=== PATIENT | male | born 1980 | race American Indian/Alaskan Native ===

== ENCOUNTER 2018-01-15 13:52 | Emergency (ER) | payer MEDICAID ==
[2018-01-15 13:52] VITALS: BMI 26.3
[2018-01-15 14:17] VITALS: BP 134/76; PULSE 58; RESP 17; TEMP 98; O2SAT 99
--- NOTE | 2018-01-15 14:54 | C.PDOC ---
History Of Present Illness 38yo male, comes to ER for evaluation of right foot pain, present since this morning. Patient states he is on his feet all night due to work and reports the pain may be due to this. He was previously seen for this complaint and was diagnosed with plantar fascitis. He denies any weakness, numbness or tingling and offers no additional medical complaints. Time Seen by Provider: 01/15/18 14:19 Chief Complaint (Nursing): Lower Extremity Problem/Injury History Per: Patient History/Exam Limitations: no limitations Onset/Duration Of Symptoms: Hrs Current Symptoms Are (Timing): Still Present Additional History Per: Patient Past Medical History Reviewed: Historical Data, Nursing Documentation, Vital Signs Vital Signs: Last Vital Signs Temp 98.0 F 01/15/18 14:14 Pulse 58 L 01/15/18 14:14 Resp 17 01/15/18 14:14 BP 134/76 01/15/18 14:14 Pulse Ox 99 01/15/18 14:55 - Medical History PMH: Denies: Diabetes, Hepatitis, HIV, HTN, Seizures, Sexually Transmitted Disease Surgical History: No Surg Hx Family History: States: No Known Family Hx, Unknown Family Hx - Social History Hx Alcohol Use: Yes Hx Substance Use: No - Immunization History Hx Tetanus Toxoid Vaccination: No Hx Influenza Vaccination: No Hx Pneumococcal Vaccination: No Review Of Systems Musculoskeletal: Positive for: Foot Pain Neurological: Negative for: Weakness, Numbness Physical Exam - Physical Exam Appears: Non-toxic Skin: Normal Color Extremity: Normal ROM (FROM of bilateral feet), Tenderness (tenderness to plantar ascpect of right foot) Pulses: Left Dorsalis Pedis: Normal, Right Dorsalis Pedis: Normal Neurological/Psych: Oriented x3, Normal Motor, Normal Sensation Gait: Steady ED Course And Treatment O2 Sat by Pulse Oximetry: 99 (RA) Pulse Ox Interpretation: Normal Progress Note: XR Right foot ordered. Patient given Toradol 30mg IM Medical Decision Making Medical Decision Making: h/o of plantar fasciitis, previously seen by podiatry. xr neg for fx. advised of incidental finding and request outpt fu. Disposition - Disposition Referrals: [facility] [Outside] [facility] [Outside] Podiatry Clinic [Outside] Disposition: HOME/ ROUTINE Disposition Time: 02:00 Condition: GOOD Additional Instructions: follow up with your doctor/clinic. return to er with worsening symptoms or concerns. Prescriptions: Naproxen 500 mg PO BID PRN #14 tablet PRN Reason: Pain, Mild (1-3) Instructions: Heel Pain (Caused by Plantar Fasciitis), Plantar Fasciitis Exercises, Foot Sprain (DC) Forms: [employer] ([place] Islander) - Clinical Impression Clinical Impression: Foot pain - Scribe Statement The provider has reviewed the documentation as recorded by the Nereida White Provider Attestation: All medical record entries made by the Nereida were at my direction and personally dictated by me. I have reviewed the chart and agree that the record accurately reflects my personal performance of the history, physical exam, medical decision making, and the department course for this patient. I have also personally directed, reviewed, and agree with the discharge instructions and disposition.
--- NOTE | 2018-01-15 14:59 | RAD ---
Date of service: 01/15/2018 PROCEDURE: Right Foot Radiographs. HISTORY: foot pain COMPARISON: None. FINDINGS: BONES: No acute fracture. JOINTS: Normal. SOFT TISSUES: Normal. OTHER FINDINGS: Inferior plantar calcaneal spur. IMPRESSION: No demonstrated fracture or dislocation. Large heel spur.
== END 2018-01-15 15:15 | disposition home or self-care (01) ==
LOC: C.ER 13:52
DX: M79.671 Pain in right foot (principal)
CPT/HCPCS: 73630; 96372; 99283; J1885

== ENCOUNTER 2018-05-21 13:03 | Emergency (ER) | payer MEDICAID ==
[2018-05-21 13:03] VITALS: BMI 26.3
[2018-05-21 13:15] VITALS: BP 130/75; PULSE 63; RESP 18; TEMP 98.8; O2SAT 98
[2018-05-21] MEDS ORDERED: guaiFENesin 100 mg/5 ml Syrup UD PO STA (13:25)
--- NOTE | 2018-05-21 13:27 | C.PDOC ---
History Of Present Illness 38 year old female presents to the ED for evaluation of cough, nasal congestion, and rhinorrhea for 1 week. Patient also reports right-sided headache. Admits he has not taken any mediation for current symptoms. Denies fever, nausea, vomiting, and any other associated symptoms. Time Seen by Provider: 05/21/18 13:21 Chief Complaint (Nursing): Cough, Cold, Congestion History Per: Patient History/Exam Limitations: no limitations Onset/Duration Of Symptoms: Days Current Symptoms Are (Timing): Still Present Past Medical History Reviewed: Historical Data, Nursing Documentation, Vital Signs Vital Signs: Last Vital Signs Temp 98.8 F 05/21/18 13:13 Pulse 63 05/21/18 13:13 Resp 18 05/21/18 13:13 BP 130/75 05/21/18 13:13 Pulse Ox 98 05/21/18 13:13 - Medical History PMH: Denies: Diabetes, Hepatitis, HIV, HTN, Seizures, Sexually Transmitted Disease Family History: States: Unknown Family Hx - Social History Hx Alcohol Use: Yes Hx Substance Use: No - Immunization History Hx Tetanus Toxoid Vaccination: No Hx Influenza Vaccination: No Hx Pneumococcal Vaccination: No Review Of Systems Except As Marked, All Systems Reviewed And Found Negative. Constitutional: Negative for: Fever ENT: Positive for: Nose Discharge, Nose Congestion Respiratory: Positive for: Cough Gastrointestinal: Negative for: Nausea, Vomiting Neurological: Positive for: Headache (right-sided.) Physical Exam - Physical Exam Appears: Well, Non-toxic, No Acute Distress Skin: Normal Color, Warm, Dry Head: Atraumatic, Normacephalic Eye(s): bilateral: PERRL Ear(s): Bilateral: Normal Nose: Other ((+) erythema. (+) kissing turbinates, right is greater than the left. ) Oral Mucosa: Moist Throat: Normal, No Erythema, No Exudate Neck: Normal ROM, Supple Cardiovascular: No Rhythm Regular, No Murmur Respiratory: Normal Breath Sounds, No Rales, No Rhonchi, No Wheezing Neurological/Psych: Oriented x3, Normal Speech, Normal Cognition ED Course And Treatment O2 Sat by Pulse Oximetry: 98 (RA) Pulse Ox Interpretation: Normal Medical Decision Making Medical Decision Making: mild c/c/c x 1 weeks, R>L sinus congestion educated OTC meds Plan: -Mireille. Bhumikasin. Sudafed. Progress/Update: Patient stable for discharge home. Disposition Doctor Will See Patient In The: Office Counseled Patient/Family Regarding: Studies Performed, Diagnosis - Disposition Referrals: [facility] [Outside] [facility] [place] [Outside] [facility] [Outside] Disposition: HOME/ ROUTINE Disposition Time: 13:26 Condition: GOOD Additional Instructions: OTC cough/cold meds additionally may use (but don't double-up on...) [id number] mg every 6 hours as needed for nasal congestion Flonase spray- 1 spray each nostril every 12 hours as needed- decreases nasal nasal congestion outpatient follow-up in our [facility]. Instructions: Sinus Headache (DC), Viral Syndrome (DC) Forms: [employer] (Swedish) - Clinical Impression Clinical Impression: Viral disease - Scribe Statement The provider has reviewed the documentation as recorded by the Scribe (Pat Eugene) Provider Attestation: All medical record entries made by the Scribe were at my direction and personally dictated by me. I have reviewed the chart and agree that the record accurately reflects my personal performance of the history, physical exam, medical decision making, and the department course for this patient. I have also personally directed, reviewed, and agree with the discharge instructions and disposition.
[2018-05-21] MEDS ORDERED: guaiFENesin 100 mg/5 ml Syrup UD ONE (13:35)
== END 2018-05-21 13:38 | disposition home or self-care (01) ==
LOC: C.ER 13:03
DX: B34.9 Viral infection, unspecified (principal)